=== PATIENT | female | born 1975 | race Caucasian/White ===

== ENCOUNTER 2021-10-02 23:09 | Emergency (ER) | payer OTHER, SELFPAY ==
[2021-10-02 23:13] VITALS: BP 145/94; PULSE 86; RESP 16; TEMP 36.4; O2SAT 96; BMI 29.1
--- NOTE | 2021-10-02 23:40 | ED_ITS ---
HPI - General Adult General Chief complaint: Chest Pain <Yohannes Xie MD - Last Filed: 10/02/21 23:44> Stated complaint: chest pain <Yohannes Xie MD - Last Filed: 10/02/21 23:44> Time Seen by Provider: 10/02/21 23:40 <Yohannes Xie MD - Last Filed: 10/02/21 23:44> History of Present Illness HPI narrative: Patient is a 45-year-old woman who was recently diagnosed with hypertension. She has been having intermittent chest pain last several days. The pain is in the mid chest with no significant radiation no nausea no vomiting no fevers no chills. She has describes no aggravating or alleviating factors. She has otherwise been feeling well with no other major symptoms. Upon arrival in the emergency room she has a normal EKG with no ST or T-wave changes. <Yohannes Xie MD - Last Filed: 10/02/21 23:44> Related Data Home medications: Home Medications Medication Instructions Recorded Confirmed amitriptyline 25 mg tablet mg 10/02/21 epinephrine 0.3 mg/0.3 mL 10/02/21 injection, auto-injector fluticasone propionate 50 intranasal 10/02/21 mcg/actuation nasal spray,suspension indomethacin 50 mg capsule mg 10/02/21 levothyroxine 100 mcg tablet mcg 10/02/21 loratadine 10 mg tablet mg 10/02/21 sumatriptan succinate 50 mg tablet mg PO 10/02/21 Previous Rx's Medication Instructions Recorded estradiol 0.1 mg/24 hr semiweekly 1 patch transdermal 2XW #24 ea 08/29/21 transdermal patch alprazolam 0.25 mg tablet 0.25 mg PO QWEEK PRN anxiety #10 09/13/21 tabs lisinopril 10 1 tab PO DAILY #30 tabs 10/03/21 mg-hydrochlorothiazide 12.5 mg tablet <Yohanens Xie MD - Last Filed: 10/02/21 23:44> Allergies/adverse reactions: Allergies Allergy/AdvReac Type Severity Reaction Status Date / Time bee venom protein (honey bee) Allergy Verified 10/02/21 23:33 hydroxyzine Allergy Verified 10/02/21 23:33 levofloxacin Allergy Verified 10/02/21 23:33 meperidine Allergy Verified 10/02/21 23:33 phenazopyridine Allergy Verified 10/02/21 23:33 Quinolones Allergy throat Verified 10/02/21 23:33 swelling <Yohannes Xie MD - Last Filed: 10/02/21 23:44> Review of Systems Status of ROS: Reports: 10 or more systems reviewed and unremarkable except as noted in History and below <Yohannes Xie MD - Last Filed: 10/02/21 23:44> [facility] Medical History: Medical History (Updated 10/03/21 @ 01:05 by Jeremy Ray MD) Anxiety Hypertension Menopause present <Yohannes Xie MD - Last Filed: 10/02/21 23:44> Social History: Social History Smoking Status: Never smoker How often do you have a drink containing alcohol: 2-4 times a month AUDIT-C Alcohol total score: 2 Non-prescribed substance use: denies use <Yohannes Xie MD - Last Filed: 10/02/21 23:44> Exam Narrative: Exam Narrative: EXAM GENERAL: Patient appears comfortable and well. EYES: No scleral icterus. LYMPH: No supraclavicular or cervical lymphadenopathy. SKIN: Visible skin seen during exam normal or with benign process only. EXT: No dependent lower extremity pedal edema. HEART: Regular rate and rhythm with no murmurs, rubs, or gallops. LUNGS: Clear to auscultation bilaterally with no crackles or wheezes. ABD: Soft, non tender, non distended. PSYCH: Good eye contact, speech is not pressured. <Yohannes Xie MD - Last Filed: 10/02/21 23:44> Const: Vital Signs, click to edit/add: Vital Signs - 24 hr 10/02/21 23:13 Temperature 97.6 F Pulse Rate [Left P ulse Oximeter] 86 Respiratory Rate 16 Blood Pressure [Ri ght Upper Arm] 145/94 H Pulse Oximetry 96 Oxygen Delivery Me thod Room Air <Yohannes Xie MD - Last Filed: 10/02/21 23:44> Vital Signs, click to edit/add: Vital Signs - 24 hr 10/02/21 23:13 Temperature 97.6 F Pulse Rate [Left P ulse Oximeter] 86 Respiratory Rate 16 Blood Pressure [Ri ght Upper Arm] 145/94 H Pulse Oximetry 96 Oxygen Delivery Me thod Room Air <Jeremy Ray MD - Last Filed: 10/03/21 01:07> Course Course Hospital Course: EKG upon arrival is normal no ST or T-wave changes. This point D-dimer troponin CBC basic metabolic panel are pending. Id <Yohannes Xie MD - Last Filed: 10/02/21 23:44> Reevaluation(s) Reevaluation #1: I assumed care of this patient from Dr. Xie. She continues to complain of left-sided chest pain. This is palpable and localized to the left lower costochondral joints. She is given Toradol 60 mg IM with good improvement. Had a discussion regarding her blood pressure. Both parents have hypertension and she has been monitoring for several weeks and all the numbers have been in excess of 160 systolic. I did agree to send a blood pressure medication to her pharmacy. <Jeremy Ray MD - Last Filed: 10/03/21 01:07> Vital Signs Vital signs: Initial Vital Signs Temperature 97.6 F 10/02/21 23:13 Temperature Source Temporal Artery Scan 10/02/21 23:13 Pulse Rate 86 10/02/21 23:13 Respiratory Rate 16 10/02/21 23:13 Blood Pressure 145/94 H 10/02/21 23:13 Blood Pressure Mean 111 10/02/21 23:13 Blood Pressure Position Sitting 10/02/21 23:13 Pulse Oximetry 96 10/02/21 23:13 Oxygen Delivery Method 10/02/21 23:13 Vital Signs Temperature 97.6 F 10/02/21 23:13 Pulse Rate 86 10/02/21 23:13 Respiratory Rate 16 10/02/21 23:13 Blood Pressure 145/94 H 10/02/21 23:13 Pulse Oximetry 96 10/02/21 23:13 Oxygen Delivery Method 10/02/21 23:13 Temperature 97.6 F 10/02/21 23:13 Pulse Rate 86 10/02/21 23:13 Respiratory Rate 16 10/02/21 23:13 Blood Pressure 145/94 H 10/02/21 23:13 Pulse Oximetry 96 10/02/21 23:13 Oxygen Delivery Method 10/02/21 23:13 <Yohannes Xie MD - Last Filed: 10/02/21 23:44> Initial Vital Signs Temperature 97.6 F 10/02/21 23:13 Temperature Source Temporal Artery Scan 10/02/21 23:13 Pulse Rate 86 10/02/21 23:13 Respiratory Rate 16 10/02/21 23:13 Blood Pressure 145/94 H 10/02/21 23:13 Blood Pressure Mean 111 10/02/21 23:13 Blood Pressure Position Sitting 10/02/21 23:13 Pulse Oximetry 96 10/02/21 23:13 Oxygen Delivery Method 10/02/21 23:13 Vital Signs Temperature 97.6 F 10/02/21 23:13 Pulse Rate 86 10/02/21 23:13 Respiratory Rate 16 10/02/21 23:13 Blood Pressure 145/94 H 10/02/21 23:13 Pulse Oximetry 96 10/02/21 23:13 Oxygen Delivery Method 10/02/21 23:13 Temperature 97.6 F 10/02/21 23:13 Pulse Rate 86 10/02/21 23:13 Respiratory Rate 16 10/02/21 23:13 Blood Pressure 145/94 H 10/02/21 23:13 Pulse Oximetry 96 10/02/21 23:13 Oxygen Delivery Method 10/02/21 23:13 <Jeremy Ray MD - Last Filed: 10/03/21 01:07> Medical Decision Making Lab Data Labs: Lab Results 10/03/21 10/03/21 10/03/21 Range/Units 00:10 00:10 00:10 WBC 8.61 (4.50-11.00) K/uL RBC 4.64 (4.00-5.20) m/uL Hgb 13.9 (12.0-16.0) gm/dL Hct 40.7 (33.0-51.0) % MCV 88 (80-100) fL MCH 30 (26-34) pg MCHC 34 (32-36) gm/dL RDW Coeff of Magda 12.5 (11.5-15.5) % Plt Count 339 (140-440) K/uL Neut % (Auto) 51.8 (42.0-72.0) % Lymph % (Auto) 36.9 (20-44) % Lyon % (Auto) 8.4 (0.0-11.0) % Eos % (Auto) 1.9 (0.0-7.0) % Baso % (Auto) 0.7 (0.0-3.0) % Neut # (Auto) 4.46 (1.7-7.0) K/uL Lymph # (Auto) 3.18 H (0.90-2.90) K/uL Lyon # (Auto) 0.70 (0.00-0.90) K/UL Eos # (Auto) 0.16 (0.00-0.50) K/uL Baso # (Auto) 0.06 (0.00-0.30) K/uL Abs Immat Gran (auto) 0.03 (0.00-0.30) K/uL D-Dimer Quant (PE/DVT) 0.29 (0.00-0.50) ug/ml Sodium 139 (135-149) mmol/L Potassium 3.6 (3.6-5.1) mmol/L Chloride 105 (96-114) mmol/L Carbon Dioxide 25 (20-32) mmol/L BUN 18 (5-24) mg/dL Creatinine 0.9 (0.5-1.5) mg/dL Estimated Creat Clear 75.95 Estimated GFR 80 ml/min Glucose 114 (60-115) mg/dL Calcium 9.1 (8.4-10.6) mg/dL Troponin I < 0.01 L (0.01-0.04) ng/mL <Yohannes Xie MD - Last Filed: 10/02/21 23:44> Lab Results 10/03/21 10/03/21 10/03/21 Range/Units 00:10 00:10 00:10 WBC 8.61 (4.50-11.00) K/uL RBC 4.64 (4.00-5.20) m/uL Hgb 13.9 (12.0-16.0) gm/dL Hct 40.7 (33.0-51.0) % MCV 88 (80-100) fL MCH 30 (26-34) pg MCHC 34 (32-36) gm/dL RDW Coeff of Magda 12.5 (11.5-15.5) % Plt Count 339 (140-440) K/uL Neut % (Auto) 51.8 (42.0-72.0) % Lymph % (Auto) 36.9 (20-44) % Lyon % (Auto) 8.4 (0.0-11.0) % Eos % (Auto) 1.9 (0.0-7.0) % Baso % (Auto) 0.7 (0.0-3.0) % Neut # (Auto) 4.46 (1.7-7.0) K/uL Lymph # (Auto) 3.18 H (0.90-2.90) K/uL Lyon # (Auto) 0.70 (0.00-0.90) K/UL Eos # (Auto) 0.16 (0.00-0.50) K/uL Baso # (Auto) 0.06 (0.00-0.30) K/uL Abs Immat Gran (auto) 0.03 (0.00-0.30) K/uL D-Dimer Quant (PE/DVT) 0.29 (0.00-0.50) ug/ml Sodium 139 (135-149) mmol/L Potassium 3.6 (3.6-5.1) mmol/L Chloride 105 (96-114) mmol/L Carbon Dioxide 25 (20-32) mmol/L BUN 18 (5-24) mg/dL Creatinine 0.9 (0.5-1.5) mg/dL Estimated Creat Clear 75.95 Estimated GFR 80 ml/min Glucose 114 (60-115) mg/dL Calcium 9.1 (8.4-10.6) mg/dL Troponin I < 0.01 L (0.01-0.04) ng/mL <Jeremy Ray MD - Last Filed: 10/03/21 01:07> Discharge Plan Discharge Clinical Impression: Costalchondritis <Yohannes Xie MD - Last Filed: 10/02/21 23:44> Patient Disposition: Home, Self-Care <Yohannes Xie MD - Last Filed: 10/02/21 23:44> Condition: Improved <Yohannes Xie MD - Last Filed: 10/02/21 23:44> Instructions: Costochondritis (ED) <Yohannes Xie MD - Last Filed: 10/02/21 23:44> Additional Instructions: Start lisinopril/hydrochlorothiazide 10/12.5 daily. Continue to monitor blood pressure at home. Use Tylenol or ibuprofen for pain. Follow-up with Dr. Rosales in two weeks. <Yohannes Xie MD - Last Filed: 10/02/21 23:44> Prescriptions: New lisinopril-hydrochlorothiazide 10-12.5 mg tablet 1 tab PO DAILY Qty: 30 0RF No Action sumatriptan succinate 50 mg tablet PO Label Comments: TAKE ONE TABLET BY MOUTH NEEDED AT ONSET OF HEADACHE. MAY REPEAT EVERY 2 HOURS NEEDED - MAX OF 4 TABLETS PER 24 HOURS levothyroxine 100 mcg tablet Label Comments: TAKE 1 TABLET BY MOUTH DAILY. amitriptyline 25 mg tablet Label Comments: TAKE 3 TABLETS BY MOUTH DAILY AT BEDTIME indomethacin 50 mg capsule Label Comments: TAKE ONE CAPSULE BY MOUTH THREE TIMES A DAY NEEDED FOR MIGRAINES epinephrine 0.3 mg/0.3 mL auto-injector Label Comments: INJECT 0.3MG INTO THE THIGH NEEDED FOR ALLERGIC REACTION fluticasone propionate 50 mcg/actuation spray,suspension INTRANASAL Label Comments: INHALE 1 SPRAY INTO EACH NOSTRIL DAILY loratadine 10 mg tablet Label Comments: TAKE ONE TABLET BY MOUTH EVERY DAY estradiol 0.1 mg/24 hr patch semiweekly 1 patch transdermal 2XW Qty: 24 0RF Rx Instructions: apply 1 patch for 3 days alternating with 1 patch for 4 days each week for 3 wks per 4-wk cycle alprazolam 0.25 mg tablet 0.25 mg PO QWEEK PRN (Reason: anxiety) Qty: 10 0RF Rx Instructions: 10 tablets expected to last one year. <Yohannes Xie MD - Last Filed: 10/02/21 23:44> Follow Up/Referrals: Provider,Not a Local [Primary Care Provider] - Zenia Rosales MD [Staff Physician] - <Yohannes Xie MD - Last Filed: 10/02/21 23:44> Stand Alone Forms: [facility] <Yohannes Xie MD - Last Filed: 10/02/21 23:44>
--- NOTE | 2021-10-02 23:49 | CRLHL7_ITS ---
For Patients: As a result of the Cures Act, medical imaging exams and procedure reports are released immediately into your electronic medical record. You may view this report before your referring provider. If you have questions, please contact your health care provider. Indication: Chest pain. Technique: Portable AP chest x-ray. Comparison: None. Findings: The cardiac silhouette and pulmonary vasculature are within normal limits. The lungs are clear bilaterally. Impression: No evidence of acute pulmonary disease. Dictated by Delmar Carvalho MD @ 10/03/2021 12:51:38 AM (Electronically Signed)
[2021-10-03 00:17] LABS: Basophils Absolute Auto 0.06 K/uL (0.00-0.30); Basophils Percent Auto 0.7 % (0.0-3.0); Eosinophils Absolute Auto 0.16 K/uL (0.00-0.50); Eosinophils Percent Auto 1.9 % (0.0-7.0); Hematocrit 40.7 % (33.0-51.0); Hemoglobin* 13.9 gm/dL (12.0-16.0); Immature Granulocytes Abs Auto 0.03 K/uL (0.00-0.30); Lymphocytes Absolute Auto 3.18 K/uL (0.90-2.90); Lymphocytes Percent Auto 36.9 % (20-44); Mean Corpuscular HGB Conc 34 gm/dL (32-36); Mean Corpuscular Hemoglobin 30 pg (26-34); Mean Corpuscular Volume 88 fL (80-100); Monocytes Percent Auto 8.4 % (0.0-11.0); Neutrophils Absolute Auto 4.46 K/uL (1.7-7.0); Neutrophils Percent Auto 51.8 % (42.0-72.0); Platelet Count* 339 K/uL (140-440); RDW Coefficient of Variation % 12.5 % (11.5-15.5); Red Blood Count 4.64 m/uL (4.00-5.20); White Blood Count* 8.61 K/uL (4.50-11.00)
[2021-10-03 00:26] LABS: Slide Review Reflex No
[2021-10-03 00:38] LABS: Chloride* 105 mmol/L (96-114); Potassium* 3.6 mmol/L (3.6-5.1); Sodium* 139 mmol/L (135-149)
[2021-10-03 00:40] LABS: Creatinine* 0.9 mg/dL (0.5-1.5); Est. Creatinine Clearance* 75.95; Estimated Glomerular Filt Rate 80 ml/min
[2021-10-03 00:41] LABS: Blood Urea Nitrogen* 18 mg/dL (5-24); Calcium* 9.1 mg/dL (8.4-10.6); Carbon Dioxide* 25 mmol/L (20-32); Glucose* 114 mg/dL (60-115)
[2021-10-03 00:42] LABS: D Dimer Quantitative* 0.29 ug/ml (0.00-0.50)
[2021-10-03 00:54] LABS: Troponin I* < 0.01 ng/mL (0.01-0.04)
[2021-10-03] MEDS: KETOROLAC 30 MG/ML inj 60 MG IM (01:07)
== END 2021-10-03 01:21 | disposition home or self-care (01) ==
PROVIDERS: Emergency Provider Internal Medicine
DX: M94.0 Chondrocostal junction syndrome [Tietze] (principal); I10 Essential (primary) hypertension
CPT/HCPCS: 36415; 71045; 80048; 84484; 85025; 85379; 93005; 96372; 99283; 99284; 99285; J1885

== ENCOUNTER 2022-12-30 07:36 | Outpatient (CLI) | payer OTHER, SELFPAY | END 2022-12-30 07:37 | disposition home or self-care (01) | LOC: NFLDREF 12-31 00:35 | PROVIDERS: PCP Physician Assistant Medical; Referring Provider Physician Assistant Medical; Visit Provider Physician Assistant Medical | DX: F41.9 Anxiety disorder, unspecified (principal); I10 Essential (primary) hypertension; E03.9 Hypothyroidism, unspecified; Z13.6 Encounter for screening for cardiovascular disorders | CPT/HCPCS: 80053; 80061; 84443 ==

== ENCOUNTER 2023-03-24 15:22 | Outpatient (CLI) | payer OTHER, SELFPAY ==
--- NOTE | 2023-03-24 15:20 | CRLHL7_ITS ---
For Patients: As a result of the Century Cures Act, medical imaging exams and procedure reports are released immediately into your electronic medical record. You may view this report before your referring provider. If you have questions, please contact your health care provider. BILATERAL SCREENING MAMMOGRAM WITH COMPUTER-AIDED DETECTION AND TOMOSYNTHESIS TECHNIQUE: CC and MLO views were obtained. These mammographic images have been obtained using full-field digital technique. These mammographic images were interpreted with the benefit of computer-aided detection. Breast Tomosynthesis was used in this interpretation. COMPARISON FILM: 07/04/17, 12/21/15, 12/16/14. FINDINGS: There are scattered areas of fibroglandular density. IMPRESSION: There is no radiographic evidence for malignancy. ASSESSMENT: BI-RADS Category 1: Negative RECOMMENDATION: Routine screening mammogram in 1 year. A lay language report of this examination will be provided to the patient. Jeremy Hernández M.D. Diagnostic Radiologist [email or web address] SP/Dictated by: Jeremy Hernández MD @ 03/25/2023 11:07:00 AM (Electronically Signed)
== END 2023-03-24 15:23 | disposition home or self-care (01) ==
LOC: MAMMO 15:23
PROVIDERS: PCP Physician Assistant Medical; Visit Provider Physician Assistant Medical
DX: Z12.31 Encounter for screening mammogram for malignant neoplasm of breast (principal)
CPT/HCPCS: 77063; 77067

== ENCOUNTER 2024-03-29 11:18 | Outpatient (CLI) | payer OTHER, SELFPAY | END 2024-03-29 11:19 | disposition home or self-care (01) | LOC: NFLDREF 03-31 00:44 | PROVIDERS: PCP Physician Assistant Medical; Referring Provider Physician Assistant Medical; Visit Provider Physician Assistant Medical | DX: I10 Essential (primary) hypertension (principal); E78.1 Pure hyperglyceridemia; E03.9 Hypothyroidism, unspecified; E55.9 Vitamin D deficiency, unspecified; F41.9 Anxiety disorder, unspecified; E66.9 Obesity, unspecified; G43.919 Migraine, unspecified, intractable, without status migrainosus | CPT/HCPCS: 80053; 80061; 82306; 84443 ==

== ENCOUNTER 2024-11-18 11:38 | Outpatient (CLI) | payer OTHER, SELFPAY ==
[2024-11-18 22:49] LABS: Bacterial Vaginosis* Negative (Negative); Candida glab/krus NOT DETECTED (No Detected)
== END 2024-11-18 11:39 | disposition home or self-care (01) ==
LOC: FRMREF 11:57
PROVIDERS: PCP Physician Assistant Medical; Visit Provider Registered Nurse
DX: N89.8 Other specified noninflammatory disorders of vagina (principal)
CPT/HCPCS: 81513; 87481; 87661